=== PATIENT | male | born 1985 | race Caucasian/White ===

== ENCOUNTER 2017-11-02 17:20 | Emergency (ER) | payer MEDICAID, MEDICARE ==
[~2017-11-02 17:20] MED LIST: CYC10 PO; GAB300 PO; METHY10 PO; MORS15 PO; PER PO; PREG75CA61 PO; PROAIRPT IH
[2017-11-02] MEDS ORDERED: GABA-549 PO (17:34)
[2017-11-02] MEDS ORDERED: TRAM100T22 PO (17:34)
[2017-11-02] MEDS ORDERED: TRAM-420 PO (17:34)
--- NOTE | 2017-11-02 18:00 | ER Report ---
History and Physical Time Seen By MD: 17:59 Hx. of Stated Complaint: Pt fell from bed and hit right cheek on night stand. No LOC. Denies cervical spine tenderness or head upon palpation. HPI/ROS CHIEF COMPLAINT: Facial laceration HISTORY OF PRESENT ILLNESS: 32-year-old male patient presents to emergency room with complaint of a facial laceration. Patient states that he was in bed and was reaching over to pick is follow-up of for when he lost his balance and fell out of bed striking his face on his bedside table. He states that he did not have any loss of consciousness, however he states he did have a loss of bladder control. He states that he has significant amount of tenderness to his face. He states that the last time that he had a tetanus shot was last year. He denies having any fevers, chills, nausea, vomiting or diarrhea. Patient has not taken any medication for this. He did apply pressure to it and get it was able to get the bleeding to stop. REVIEW OF SYSTEMS: Respiratory: No cough, no dyspnea. Cardiovascular: No chest pain, no palpitations. Gastrointestinal: No vomiting, no abdominal pain. Musculoskeletal: No back pain. Allergies: Coded Allergies: No Known Drug Allergies (Verified , 08/24/10) Home Meds Reported Medications Tramadol Hcl (TRAMADOL HCL) 100 Mg Tab.er.24h, 100 MG PO BID, TAB 11/02/17 Tramadol Hcl (TRAMADOL HCL) 50 Mg Tablet, 50 MG PO NOON, TAB 11/02/17 Gabapentin (GABAPENTIN) 300 Mg Capsule, 900 MG PO TID, CAPSULE 11/02/17 Albuterol Sulfate (Proair Hfa) 8.5 Gm Aer.w.adap, 8.5 GM IH, 0 Refills NEEDED 08/24/10 Discontinued Reported Medications Methylphenidate Hcl (Ritalin) 10 Mg Tab, 20 MG PO BIDD, 0 Refills 08/24/10 Pregabalin (Lyrica) 75 Mg Capsule, 75 MG PO BID, 0 Refills 08/24/10 Morphine Sulfate (Ms Contin) 15 Mg Tabcr, 30 MG PO Q12H, 0 Refills 08/24/10 Oxycodone/Acetaminophen (OXYCODONE/ACETAMINOPHEN 5MG/325 MG) 5 Mg/325 Mg Tab, 1 TAB PO Q4-6H, 0 Refills UP TO 2 TABLETS DAILY 08/24/10 Past Medical/Surgical History Patient has a past medical history of asthma, ruptured left testicle, arthritis , fractures, back pain. Patient has a surgical history of a pelvic fracture in 2007. Reviewed Nurses Notes: Yes Hx Substance Use Disorder: No Hx Alcohol Use: No Constitutional Vital Sign - Last 24 Hours 11/02/17 11/02/17 11/02/17 11/02/17 17:23 17:26 17:30 17:35 Temp 97.4 Pulse 92 84 Resp 20 B/P (MAP) 136/108 (117) 136/108 142/104 (117) Pulse Ox 95 94 O2 Delivery Room Air 11/02/17 11/02/17 11/02/17 11/02/17 17:50 18:05 18:10 18:25 Pulse 87 81 74 83 Pulse Ox 94 94 96 97 11/02/17 11/02/17 11/02/17 11/02/17 18:29 18:40 18:55 19:00 Pulse 87 74 B/P (MAP) 120/81 (94) 128/92 (104) Pulse Ox 96 91 11/02/17 11/02/17 11/02/17 11/02/17 19:10 19:25 19:30 19:35 Pulse 78 90 88 84 B/P (MAP) 108/85 (93) Pulse Ox 94 91 91 93 11/02/17 11/02/17 11/02/17 19:40 19:54 19:55 Pulse 91 88 Resp 16 B/P (MAP) 132/82 (99) 112/85 (94) Pulse Ox 93 92 O2 Delivery Room Air Physical Exam General Appearance: The patient is alert, has no immediate need for airway protection and no current signs of toxicity. Eyes: Pupils equal and round no injection. Extraocular movements intact. Respiratory: Chest is non tender, lungs are clear to auscultation. Cardiac: regular rate and rhythm Gastrointestinal: Abdomen is soft and non tender, no masses, bowel sounds normal. Musculoskeletal: Neck: Neck is supple and non tender. Extremities have full range of motion and are non tender. Skin: No rashes or lesions. Patient has a 7.5 cm laceration to the right cheek, it does go into the subcutaneous tissue. DIFFERENTIAL DIAGNOSIS: After history and physical exam differential diagnosis was considered for laceration, intracranial bleed, concussion. Medical Decision Making EKG/Imaging Imaging CT OF THE BRAIN WITHOUT CONTRAST HISTORY: Fall PROCEDURE: 3.0 mm contiguous axial sections were performed through the brain. Sagittal and coronal reformats were submitted. COMPARISON: None FINDINGS: BRAIN: Brain and intracranial structures: There is no mass lesion, hemorrhage or acute infarct. Orbits (included portions): Normal. Scalp: There is edema and possibly a laceration of the right face at the level of the zygoma. Skull: No skull fracture. Paranasal sinuses and mastoid air cells (included portions): Small retention cyst or polyp in the right maxillary sinus. IMPRESSION: Soft tissue edema and laceration on the right lateral face. No underlying skull fracture and no evidence of acute intracranial abnormality. One of the following dose optimization techniques was utilized in the performance of this exam: Automated exposure control; adjustment of the mA and/ or kV according to the patient's size; or use of an iterative reconstruction technique. Specific details can be referenced in the facility's radiology CT exam operational policy. Report Dictated By: Cuate Padilla MD at 11/02/2017 7:07 PM Report E-Signed By: Cuate Padilla MD at 11/02/2017 7:10 PM ED Course/Re-evaluation ED Course Patient was admitted to exam room, history and physical obtained. Differential diagnoses were considered. On examination patient does have a 7.570 laceration to the right side of the face. Does go into the subcutaneous tissue. Patient has no tenderness to his head, his neck. Patient did say that he had a loss of bladder control when he fell out of his bed. Has resulted that a CT scan of the head was done. I was waiting for the report of the CT scan the wound was anesthetized, cleaned and repaired described below. The CT scan imaging was negative for any acute process. Patient requested an anti-inflammatory. He was given a dose of Toradol here in the emergency room. He is to take ibuprofen or Tylenol as need for pain. We'll go ahead and discharge him home at this time. He is given instructions to follow-up with his primary care provider in 5-7 days. He is to monitor for signs of infection. He is return to emergency room with any concerns. The patient and his mother verbalized understanding and agreement. Procedure: Laceration repair. Verbal consent was obtained from the patient. The 7.5 cm laceration on the right cheek was anesthetized in the usual fashion. The wound was scrubbed, draped and explored to its base with a gloved finger. There were no deep structures involved. No tendon injury was identified. The wound was repaired with 16 simple interrupted sutures using 6-0 Prolene material and 2 subcuticular sutures using 4-0 Vicryl material. The wound repair was intermediate. The procedure was performed by myself. Decision to Disposition Date: Nov 02, 2017 Decision to Disposition Time: 19:46 Depart Departure Latest Vital Signs Vital Signs Date Time Temp Pulse Resp B/P (MAP) Pulse Ox O2 Delivery O2 Flow Rate FiO2 11/02/17 19:55 112/85 (94) 11/02/17 19:54 88 16 92 Room Air 11/02/17 17:26 97.4 Impression: Primary Impression: Laceration Condition: Improved Disposition: HOME OR SELF-CARE Referrals: ERICKA SY PA-C (PCP) Patient Instructions: Facial Laceration (ED) Additional Instructions: Keep wound dry for 48 hours. Follow up with your primary care provider in the next 5-7 days to have sutures removed. Monitor for signs of infection; redness, swelling, heat, discharge, increasing pain or red streaking. Take Tylenol or Ibuprofen as needed for pain. Return to the ER with any concerns. You may change dressing as needed. DIVYA RODRIGUEZ Nov 02, 2017 18:00
--- NOTE | 2017-11-02 19:14 | RADIOLOGY IMAGING REPORT ---
FACILITY: [facility] [place] PATIENT NAME: Ramos Murphy : 1985 MR: [id number] V: [id number] EXAM DATE: ORDERING PHYSICIAN: DIVYA RODRIGUEZ TECHNOLOGIST: Location: [facility] Patient: Ramos Murphy : 1985 Visit/Account:[id number] Date of Sevice: 11/02/2017 CT OF THE BRAIN WITHOUT CONTRAST HISTORY: Fall PROCEDURE: 3.0 mm contiguous axial sections were performed through the brain. Sagittal and coronal r eformats were submitted. COMPARISON: None FINDINGS: BRAIN: Brain and intracranial structures: There is no mass lesion, hemorrhage or acute infarct. Orbits (included portions): Normal. Scalp: There is edema and possibly a laceration of the right face at the level of the zygoma. Skull: No skull fracture. Paranasal sinuses and mastoid air cells (included portions): Small retention cyst or polyp in the rig ht maxillary sinus. IMPRESSION: Soft tissue edema and laceration on the right lateral face. No underlying skull fracture and no evide nce of acute intracranial abnormality. One of the following dose optimization techniques was utilized in the performance of this exam: Autom ated exposure control; adjustment of the mA and/or kV according to the patient's size; or use of an i terative reconstruction technique. Specific details can be referenced in the facility's radiology C T exam operational policy. Report Dictated By: Cuate Padilla MD at 11/02/2017 7:07 PM Report E-Signed By: Cuate Padilla MD at 11/02/2017 7:10 PM [id number]
[2017-11-02] MEDS ORDERED: KETOROLAC TROM 10MG TAB PO ONE (19:45)
[2017-11-02 19:55] VITALS: BP 112/85
== END 2017-11-02 20:05 | disposition home or self-care (01) ==
LOC: ER 17:31
DX: S01.411A Laceration without foreign body of right cheek and temporomandibular area, initial encounter (principal); W06.XXXA Fall from bed, initial encounter
CPT/HCPCS: 12053; 70450; 99283; A9270

== ENCOUNTER → 2018-11-26 | Outpatient (REF) ==
[~2018-11-26] MED LIST changes: +GABA-549 PO; +TRAM-420 PO; +TRAM100T8 PO
== END ==
LOC: LAB 20:42
PROVIDERS: ATTEND Nurse Practitioner
DX: Z02.83 Encounter for blood-alcohol and blood-drug test (principal)
CPT/HCPCS: 99001